=== PATIENT | male | born 1960 | race African-American/Black ===

== ENCOUNTER 2022-05-02 15:46 | Inpatient (IN) | payer MEDICARE, MEDICAID ==
[~2022-05-02] VITALS: Ht 172.7 cm; Wt 114.0 kg
[~2022-05-02 15:46] MED LIST: GLIP10TA10 PO; HYDR25TA PO; LISI40TA13 PO; METF-416 PO; SIMV10TA97 PO; SITA100T11 PO
[2022-05-02] MEDS ORDERED: FAMOTIDINE 20MG/2ML VIAL IV STA (16:01)
[2022-05-02] MEDS ORDERED: MORPHINE SULFATE 4 MG/ML CPJ (NOT FOR IM USE) IV STA (16:01)
[2022-05-02] MEDS ORDERED: ONDANSETRON HCL 4MG/2ML INJ IV STA (16:01)
[2022-05-02] MEDS ORDERED: SODIUM CHLORIDE 0.9% 1,000 ML IV ONE (16:15)
[2022-05-02 17:35] LABS: BASOPHILS % 0.5 % (0.0-2.0); EOSINOPHILS % 2.3 % (0.0-5.0); HEMATOCRIT. 53.7 % (42.0-52.0); HEMOGLOBIN. 16.7 g/dL (14.0-18.0); LYMPHOCYTES % 38.5 % (20.0-50.0); MEAN CORPUSCULAR HEMOGLOBIN 22.3 pg (28.0-32.0); MEAN CORPUSCULAR VOLUME 71.5 fL (80.0-94.0); MEAN PLATELET VOLUME 9.3 fl (7.4-10.4); MONOCYTES % 7.9 % (2.0-8.0); NEUTROPHILS % 50.8 % (40.0-76.0); PLATELET 185 x1000/uL (130-400); RED BLOOD CELL COUNT 7.51 mill/uL (4.7-6.1); RED CELL DISTRIBUTION WIDTH 16.7 % (11.6-14.6)
[2022-05-02 17:42] LABS: CHLORIDE 102 mEq/L (98-107)
[2022-05-02] MEDS ORDERED: POTASSIUM CHLORIDE 20MEQ TABLET SR PO NR (17:56)
[2022-05-02] MEDS ORDERED: DEXTROSE 50% WATER 50ML SYRINGE IV ONE (18:30)
[2022-05-02] MEDS ORDERED: NA PHOS,M-B/NA PHOS,DI-BA ENEMA 118ML PR PRN (21:15)
[2022-05-02] MEDS ORDERED: CLONIDINE 0.1MG TABLET PO PRN (21:15)
[2022-05-02] MEDS ORDERED: ENOXAPARIN 40MG/0.4ML SYR SUBCUT SCH (21:15)
[2022-05-02] MEDS ORDERED: MAGNESIUM/ALUMINUM HYDROXIDE/SIMETHICONE 30ML UDC PO PRN (21:15)
[2022-05-02] MEDS ORDERED: NITROGLYCERIN 0.4MG TABLET SL SL PRN (21:15)
[2022-05-02] MEDS ORDERED: DOCUSATE SODIUM 100MG CAPSULE PO PRN (21:15)
[2022-05-02] MEDS ORDERED: ZOLPIDEM TARTRATE 5MG TABLET PO PRN (21:15)
[2022-05-02] MEDS ORDERED: ACETAMINOPHEN 325MG TABLET PO PRN ×2 (21:15)
[2022-05-02] MEDS ORDERED: GUAIFENESIN 200MG/10ML SUGAR FREE UDC PO PRN (21:15)
[2022-05-02] MEDS ORDERED: IPRATROPIUM/ALBUTEROL 0.5-3(2.5)MG/3ML NEB NEB PRN (21:15)
[2022-05-02] MEDS ORDERED: DEXTROSE 50% WATER 50ML SYRINGE IV PRN (21:15)
[2022-05-02] MEDS ORDERED: ONDANSETRON HCL 4MG/2ML INJ IV PRN (21:15)
[2022-05-02] MEDS ORDERED: TRAMADOL 50MG TABLET PO PRN (21:30)
[2022-05-02] MEDS ORDERED: KETOROLAC 15MG/ML VIAL IV PRN (21:30)
[2022-05-02 22:14] LABS: ETHANOL BLOOD < 10 mg/dL; HDL CHOLESTEROL 49 mg/dL (40-59); LDL CHOLESTEROL 162 mg/dL (5-100); T4 FREE 1.03 ng/dL (0.76-1.46)
[2022-05-02] MEDS ORDERED: KCL 20MEQ/100ML PREMIX 100 ML IV NR (23:00)
[2022-05-03] VITALS: BP 123/85
[2022-05-03] MEDS ORDERED: LACTULOSE 20G/30ML UDC PO SCH
[2022-05-03] MEDS ORDERED: BLOOD SUGAR DIAGNOSTIC STRIP TEST SCH (06:30)
[2022-05-03] MEDS ORDERED: INSULIN LISPRO 100 UNITS/ML SUBCUT SCH (07:00)
[2022-05-03] MEDS ORDERED: FAMOTIDINE 20MG TABLET PO SCH (09:00)
[2022-05-03] MEDS ORDERED: LISINOPRIL 20MG TABLET PO SCH (09:00)
[2022-05-03] MEDS ORDERED: ENOXAPARIN 30MG/0.3ML SYR SUBCUT SCH (09:00)
== END 2022-05-03 07:39 | disposition left against medical advice (07) | DRG 74 ==
LOC: ER 15:46 → MICUSO 20:30 → SUPCPDRO 21:10
PROVIDERS: ADMIT Internal Medicine; ATTEND Internal Medicine
DX: E11.43 Type 2 diabetes mellitus with diabetic autonomic (poly)neuropathy (principal); E44.1 Mild protein-calorie malnutrition; K21.9 Gastro-esophageal reflux disease without esophagitis; I10 Essential (primary) hypertension; Z53.29 Procedure and treatment not carried out because of patient's decision for other reasons; E78.00 Pure hypercholesterolemia, unspecified; K31.84 Gastroparesis; E87.6 Hypokalemia; Z68.38 Body mass index [BMI] 38.0-38.9, adult; Z79.899 Other long term (current) drug therapy
CPT/HCPCS: 36415; 74176; 80053; 80061; 80320; 82962; 83605; 84439; 84443; 84484; 85025; 93970; 99285; J1650; J2270; J2405; J3480; J3490; J7030; G0480

== ENCOUNTER 2022-07-07 12:19 | Emergency (ER) | payer MEDICARE, MEDICAID ==
[~2022-07-07] VITALS: Ht 180.3 cm; Wt 104.0 kg
[2022-07-07 12:40] VITALS: BP 142/95
== END 2022-07-08 02:41 | disposition left against medical advice (07) ==
LOC: ER 12:27
DX: Z53.21 Procedure and treatment not carried out due to patient leaving prior to being seen by health care provider (principal)
CPT/HCPCS: 82962